=== PATIENT | female | born 1990 | race Caucasian/White ===

== ENCOUNTER 2019-12-21 05:33 | Inpatient (IN) ==
[~2019-12-21 05:33] MED LIST: *HR* FentaNYL (PF) 100 MCG/2 ML VIAL IVP PRN; Famotidine 20 MG/2 ML VIAL IVP PRN; Lidocaine 1% 20 ML MDV INFILT PRN; Metoclopramide 10 MG/2 ML VIAL IVP PRN; Naloxone 0.4 MG/ML INJ IVP PRN
[2019-12-21 06:23] LABS: Basophils % 0.2 %; Eosinophils # 0.1 K/mcL (0.0-0.6); Eosinophils % 0.7 %; Hematocrit 32.5 % (35.3-44.9); Hemoglobin 10.3 g/dL (11.5-15.4); Lymphocytes # 2.5 K/mcL (0.6-4.6); Lymphocytes % 18.8 %; Mean Corpuscular HGB Conc 31.7 g/dL (31.6-35.5); Mean Corpuscular Hemoglobin 28.8 pg (28.0-33.3); Mean Corpuscular Volume 90.8 fL (83.0-100.0); Mean Platelet Volume 12.5 fL (9.4-12.4); Monocytes # 0.8 K/mcL (0.0-1.3); Monocytes % 6.3 %; Neutrophils # 9.7 K/mcL (1.6-8.9); Platelet Count 170 K/mcL (140-400); Red Blood Count 3.58 M/mcL (3.82-4.97); Red Cell Distribution Width 15.1 % (11.5-14.5); White Blood Count 13.3 K/mcL (4.3-11.1)
[2019-12-21] MEDS ORDERED: Ringers Solution, Lactated 1,000 ML ONE ×2 (07:26→09:42)
[2019-12-21] MEDS ORDERED: EPHEDrine 50 MG/ML VIAL IVP PRN (07:27)
[2019-12-21] MEDS ORDERED: Epidural Premix (fent/bupiv) 110 ML EP SCH (07:30)
[2019-12-21] MEDS ORDERED: Epidural Premix (fent/bupiv) 110 ML EP ONE (07:36)
[2019-12-21 08:47] LABS: Amphetamine Screen,Urine Negative ng/mL (Cutoff=1000); Barbiturate Screen,Urine Negative ng/mL (Cutoff=200); Benzodiazepines Screen,Urine Negative ng/mL (Cutoff=200); Cannabinoid Screen,Urine Negative ng/mL (Cutoff = 50); Cocaine Screen,Urine Negative ng/mL (Cutoff= 300); Opiate Screen,Urine Negative ng/mL (Cutoff=300); Phencyclidine Screen,Urine Negative ng/mL (Cutoff=25)
[2019-12-21] MEDS ORDERED: Oxytocin 20 units/ LR 1000 mL 20 UNIT/1,000 ML BAG IVC ONE (10:44)
[2019-12-21] MEDS ORDERED: Benzocaine/Menthol 56 GM AEROSOL SPRAY TP PRN (12:32)
[2019-12-21] MEDS ORDERED: Lanolin 7 G OINT...G. TP PRN (12:32)
[2019-12-21] MEDS ORDERED: Rho Immune Globulin 1,500 UNIT SYRINGE IM PRN (12:32)
[2019-12-21] MEDS ORDERED: Oxytocin 20 units/ LR 1000 mL 20 UNIT/1,000 ML BAG IVC SCH (12:32)
[2019-12-21] MEDS: Acetaminophen 325 MG TABLET PO PRN (15:05)
[2019-12-21] MEDS ORDERED: *HR* HYDROcodone/Acet 5/325 mg TABLET PO PRN (17:08)
[2019-12-21] MEDS: Ibuprofen 600 MG TABLET PO PRN (20:07)
[2019-12-22] MEDS: Ibuprofen 600 MG TABLET PO PRN ×3 (01:57→14:02)
[2019-12-22 07:53] VITALS: BP 100/67
[2019-12-22] MEDS ORDERED: Prenatal Vit/FA 1 EACH TABLET PO SCH (09:00)
[2019-12-22] MEDS: Acetaminophen 325 MG TABLET PO PRN (11:17)
== END 2019-12-22 14:50 | disposition home or self-care (01) | DRG 560 ==
LOC: 1NENULAB → 1NENUOBS 13:31
PROVIDERS: ADMIT Advanced Practice Midwife; ATTEND Advanced Practice Midwife